=== PATIENT | male | born 1995 | race Caucasian/White ===

== ENCOUNTER 2016-11-28 19:03 | Emergency (ER) | payer OTHER ==
[2016-11-28 19:10] VITALS: BP 118/57
--- NOTE | 2016-11-28 21:35 | ED ---
Skin Complaint - HPI Summary HPI Summary: 21 male presents with complaints of a burn to his right lower forearm/wrist that occurred today at work while using a piece of hot equipment. The size of tac. Patient states he think he may have over reacted however he states he smelled his skin burning which alarmed him. No bleeding or fluid. Applied bacitracin to burn and had it covered with kerlix. Patient wanted to just have it checked out. No other fan or concerns. No complaints and PMHx. No medications. 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 Associated Signs & Symptoms: Negative Related History: Other: - burn - Allergy/Home Medications Allergies/Adverse Reactions: Allergies Allergy/AdvReac Type Severity Reaction Status Date / Time Pollen Extract Allergy Itching Verified 11/28/16 19:10 PMH/Surg Hx/FS Hx/Imm Hx Endocrine/Hematology History: Denies: Hx Anticoagulant Therapy Cardiovascular History: Denies: Hx Hypertension Respiratory History: Reports: Hx Asthma - Surgical History Surgery Procedure, Year, and Place: none - Immunization History Date of Tetanus Vaccine: UTD Immunizations Up to Date: Yes Infectious Disease History: No Infectious Disease History: Denies: Traveled Outside the [place] in Last 30 Days - Family History Known Family History: Positive: None - Social History Alcohol Use: Weekly Substance Use Type: Reports: None Smoking Status (MU): Never Smoked Tobacco Review of Systems Constitutional: Negative Cardiovascular: Negative Respiratory: Negative Positive: Other - burn Neurological: Negative All Other Systems Reviewed And Are Negative: Yes Physical Exam Triage Information Reviewed: Yes Vital Signs On Initial Exam: Initial Vitals Temp Pulse Resp BP Pulse Ox 97.9 F 70 16 118/57 100 11/28/16 19:08 11/28/16 19:08 11/28/16 19:08 11/28/16 19:08 11/28/16 19:08 Vital Signs Reviewed: Yes Appearance: Positive: Well-Appearing, No Pain Distress, Well-Nourished Skin: Positive: Warm, Skin Color Reflects Adequate Perfusion, Dry, Tender - at site of burn, erythematous no drainge or blistering, appears to be a small superficial first degree burn. rectangle in shape approximately .5cm by 1cm. Not of concern. triple antibiotic ointment applied over burn, Erythema @. Negative: Cold, Numb, Pale, Weeping Skin/Lesions, Mass @ Head/Face: Positive: Normal Head/Face Inspection Eyes: Positive: Conjunctiva Clear ENT: Positive: Hearing grossly normal Neck: Positive: Supple, Nontender Respiratory/Lung Sounds: Positive: Clear to Auscultation, Breath Sounds Present. Negative: Rales, Rhonchi, Wheezes Cardiovascular: Positive: Normal, RRR, Pulses are Symmetrical in both Upper and Lower Extremities. Negative: Murmur, Rub Musculoskeletal: Positive: Normal, Strength/ROM Intact, Pain @ - on palpation of burn site. Negative: Limited @, Interruption @ Neurological: Positive: Normal, Sensory/Motor Intact, Alert, Oriented to Person Place, Time, NV Bundle Intact Distally Psychiatric: Positive: Affect/Mood Appropriate - Frida Coma Scale Coma Scale Total: 15 Diagnostics - Vital Signs Vital Signs Temp Pulse Resp BP Pulse Ox 11/28/16 19:08 97.9 F 70 16 118/57 100 - Laboratory Lab Statement: Any lab studies that have been ordered have been reviewed, and results considered in the medical decision making process. Course/Dx - Course Course Of Treatment: continue triple antibiotic, dress if desired, gently wash area and watch for signs of infection. very superficial burn of no concern. follow up pcp. drink fluids. aware of worsening signs and symptoms. - Differential Diagnoses - Skin Complaint Differential Diagnoses: Cellulitis, MRSA, Other - burn - Diagnoses Provider Diagnoses: Superficial burn of right forearm Discharge - Discharge Plan Condition: Stable Disposition: HOME Patient Education Materials: Superficial Burn (ED) Referrals: [facility] [Primary Care Provider] - Additional Instructions: Continue to apply triple antibiotic ointment. You may cover with dressing as desired. It will change many colors before completely healed, this is normal. Keep clean and dry. If symptoms worsen or new symptoms develop please seek medical attention. Drink plenty of fluids.
== END 2016-11-28 21:43 | disposition home or self-care (01) ==
LOC: ED 19:03
DX: T22.111A Burn of first degree of right forearm, initial encounter (principal); X19.XXXA Contact with other heat and hot substances, initial encounter; Y93.9 Activity, unspecified; Y92.89 Other specified places as the place of occurrence of the external cause; Y99.0 Civilian activity done for income or pay; J45.909 Unspecified asthma, uncomplicated
CPT/HCPCS: 99281